=== PATIENT | male | born 2000 | race Caucasian/White ===

== ENCOUNTER 2021-11-22 11:42 | Emergency (ER) | payer BC, SELFPAY ==
[2021-11-22 11:47] VITALS: BP 148/94; PULSE 132; RESP 20; TEMP 37.4; O2SAT 98; BMI 27.3
--- NOTE | 2021-11-22 12:21 | CT_ITS ---
STUDY: CT BRAIN WITHOUT CONTRAST REASON FOR EXAM: Male, 21 years old. seizure RADIATION DOSAGE (If Supplied By Facility): CTDIvol = ( 44.99 ) mGy, DLP = ( 745.49 ) mGycm TECHNIQUE: Transaxial CT imaging of the brain was performed without administration of intravenous contrast material. Individualized dose optimization techniques were used for this CT. COMPARISON: 11/05/2012 FINDINGS: Normal soft tissue structures. Normal calvarium. Normal size ventricles and extra-axial spaces for the patient''s age. Normal white matter tracts of the cerebral hemispheres. Normal basal ganglia and thalami. Normal brainstem. Normal cerebellum. There is no intracranial hemorrhage. There are no findings of an acute ischemic infarction. Normal visualized paranasal sinuses. CT/Brain/Head without Contrast IMPRESSION: Normal unenhanced CT scan of the brain. Electronically Signed: Silver Colindres MD at 13:45 EST Tel , Service support ,
--- NOTE | 2021-11-22 12:22 | EX.ED.DYSGE1 ---
HPI History of Present Illness Chief Complaint: Seizure Informant: patient, spouse/S.O. and EMS Onset/Context/Timing Onset: Today (JPTA) Context: Sudden Onset (while pt was in the shower) Timing: Intermittent (once) and Lasts (unk) Current Severity: Gone Maximum Severity: Severe Narrative Narrative: Unwitnessed episode possible seizure activity, patient was found wrapped up in the shower curtain line skilled nursing in and out of the shower on the bathroom floor by his children. By the time his significant other found him, he was awake and lethargic and gradually woke up, he then was in a rage and was combative with them, confused, running around, and then went outside to the family member who lives next door, it is very cold outside and he was walking around on gravel naked for 30 or 45 minutes. EMS met him in the driveway, now the patient feels back to normal, he does not remember any of that including getting a shower. 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 He denies any drug use. He had just gotten off of work and has had no recent illness or injury. He states he has had one seizure ever, and it was several years ago and he does not know any details about it. He has never been put on antiseizure medications or had an EEG. [facility] Medical History Marijuana abuse Seizures Home Medications levetiracetam [Keppra] 500 mg PO BID #60 tab 11/22/21 [Rx Last Taken Unknown] Allergy/AdvReac Type Severity Reaction Status Date / Time No Known Allergies Allergy Verified 11/22/21 11:45 Social History Smoking Status: Never smoker ROS ROS ED Constitutional Constitutional ED: Denies chills or fever(s) Eyes Eyes: Denies change in vision or diplopia ENT ENT ED: Denies rhinorrhea or sore throat Cardiovascular Cardiovascular: Denies chest pain or palpitations Respiratory/Chest Respiratory/Chest: Denies cough or dyspnea Gastrointestinal Gastrointestinal: Denies abdominal pain, diarrhea, nausea or vomiting Genitourinary Genitourinary ED: Denies dysuria or hematuria Musculoskeletal Musculoskeletal: Reports extremity pain; Denies back pain or neck pain Integumentary Reports as per HPI and wounds; Denies abscess or rash Neurologic Neurologic: Denies headache(s), paresthesias or weakness Psychiatric Psychiatric: Denies anxiety or suicidal thoughts EXAM Physical Exam Const Vital Signs: 11/22/21 11:47 11/22/21 13:50 11/22/21 15:03 Temperature 99.3 F H Temperature Source Temporal Pulse Rate 132 H 118 H 103 H Respiratory Rate 20 H 18 16 Blood Pressure 148/94 H 113/62 Blood Pressure Mean 112 79 Pulse Ox 98 98 100 Oxygen Delivery Method Room Air Room Air Room Air Positive well nourished and well developed General Appearance ED: well developed and NAD HEENT Reports moist mucous membranes HEENT Narrative: No dental injury. Small contusion left anterolateral tongue w/o laceration. normocephalic and atraumatic Eyes PERRL and EOMs intact bilaterally Neck full ROM and supple Resp normal respiratory effort and clear to auscultation bilaterally Cardio regular rate, regular rhythm and no murmurs GI non-tender and non-distended Auscultation: normoactive bowel sounds Palpation: soft Back/Spine no CVA tenderness Back/Spine Narrative: Large tender broad-based contusion/purpura left scapula, skin intact. No vertebral tenderness. Full range of motion without difficulty or pain. General Back: other FROM Extremity normal to inspection Extremity Narrative: Contusion posterior left shoulder/scapula, full range of motion of the shoulder no clavicle tenderness. Great toes have abrasions but are nontender. They are cold but there is brisk cap refill and no cyanosis. General Extremety ED: Negative for edema, pulses abnormal or tenderness General Extremity: Negative for edema or pulses abnormal Neuro oriented x3, CN's II-XII intact bilaterally and no sensory deficits noted Sensorium / Orientation: awake and alert Motor Exam: strength 5/5 throughout Skin no rashes or lesions noted Skin Narrative: Patient has some superficial traumatic wounds of his feet and toes. There is a superficial ruptured blister on the plantar aspect of the right forefoot. There are several abrasions on the dorsum of both great toes that were bandaged by EMS. There may be a small subungual hematoma right great toenail but he does not have any tenderness. No nail injuries. No contaminants. No lacerations. MDM MDM MDM Narrative Medical decision making narrative: Patient had no further seizure activity in emergency department, states on reevaluation that he feels malaised and his feet are sore. He probably truly did have frostnip on his toes, but I do not think that is what the abrasions/blisters are from, they literally look mechanical. His toes are warm, he was given some Toradol for the discomfort I do not think he needs any x-rays there is no bony tenderness and he has good blood flow without cyanosis. His work-up is consistent with a seizure. He has a mild leukocytosis signifying demargination, a lactic acidosis, a contusion on his tongue, and the history is consistent with this even though it was not witnessed. Vital signs normalized with observation here and fluids. He was given a dose of Keppra, loading at 1000 mg. Given that he has been monitored for several hours without further seizure activity I feel he is stable to be discharged home. We cleansed and bandaged his toes/feet, and he will be placed on Keppra and referred to neurology. Lab Data Attestation: I reviewed the patient's lab results. Labs: Laboratory Results - last 24 hr 11/22/21 11/22/21 11/22/21 12:48 12:48 12:48 WBC 12.3 H RBC 5.52 Hgb 16.2 Hct 49.2 MCV 89.1 MCH 29.3 MCHC 32.9 RDW Std Deviation 41.5 RDW Coeff of Maura 12.6 Plt Count 252 MPV 9.4 Immature Gran % (Auto) 0.700 Neut % (Auto) 81.4 H Lymph % (Auto) 11.1 L [place] % (Auto) 6.1 Eos % (Auto) 0.4 Baso % (Auto) 0.3 Absolute Neuts (auto) 10.0 H Absolute Lymphs (auto) 1.37 Nucleated RBC % 0 Sodium 139 Potassium 3.1 L Chloride 101 Carbon Dioxide 27.0 Anion Gap 11 BUN 15 Creatinine 1.15 Estim Creat Clear Calc 120.42 Est GFR (MDRD) Af Amer 102 Est GFR (MDRD) Non-Af 84 BUN/Creatinine Ratio 13.0 Glucose 108 H Lactic Acid 3.6 H* Calcium 9.7 Urine Color Urine Clarity Urine pH Ur Specific [place] Urine Protein Urine Glucose (UA) Urine Ketones Urine Occult Blood Urine Nitrite Urine Bilirubin Urine Urobilinogen Ur Leukocyte Esterase Urine RBC Urine WBC Ur Squamous Epith Cells Urine Bacteria Urine Mucus Urine Opiates Screen Urine Methadone Screen Ur Barbiturates Screen Ur Phencyclidine Scrn Ur Amphetamines Screen U Methamphetamin-MDMA U Benzodiazepines Scrn Urine Cocaine Screen U Cannabinoids Screen Ur Drug Screen Comment 11/22/21 11/22/21 14:28 14:28 WBC RBC Hgb Hct MCV MCH MCHC RDW Std Deviation RDW Coeff of Maura Plt Count MPV Immature Gran % (Auto) Neut % (Auto) Lymph % (Auto) [place] % (Auto) Eos % (Auto) Baso % (Auto) Absolute Neuts (auto) Absolute Lymphs (auto) Nucleated RBC % Sodium Potassium Chloride Carbon Dioxide Anion Gap BUN Creatinine Estim Creat Clear Calc Est GFR (MDRD) Af Amer Est GFR (MDRD) Non-Af BUN/Creatinine Ratio Glucose Lactic Acid Calcium Urine Color Yellow Urine Clarity Clear Urine pH 6.0 Ur Specific [place] 1.025 Urine Protein 100 H Urine Glucose (UA) Normal Urine Ketones 5 H Urine Occult Blood 25 H Urine Nitrite Negative Urine Bilirubin Negative Urine Urobilinogen Normal Ur Leukocyte Esterase Negative Urine RBC 0 SEEN Urine WBC 0 SEEN Ur Squamous Epith Cells 0 SEEN Urine Bacteria 0 SEEN Urine Mucus 0 SEEN Urine Opiates Screen NEGATIVE Urine Methadone Screen NEGATIVE Ur Barbiturates Screen NEGATIVE Ur Phencyclidine Scrn NEGATIVE Ur Amphetamines Screen NEGATIVE U Methamphetamin-MDMA NEGATIVE U Benzodiazepines Scrn NEGATIVE Urine Cocaine Screen NEGATIVE U Cannabinoids Screen POSITIVE H Ur Drug Screen Comment Radiography Diagnostic Testing: Clinical Impression(s) from Imaging Studies Brain CT 11/22/21 12:21 IMPRESSION: Normal unenhanced CT scan of the brain. Electronically Signed: Silver Colindres MD at 13:45 EST Tel , Service support , Shoulder X-Ray 11/22/21 13:05 IMPRESSION: Normal x-ray examination of the shoulder. Electronically Signed: Silver Colindres MD at 13:41 EST Tel , Service support , Discharge Plan Triage Chief Complaint: Seizure ED Provider: Marcus Saenz Dx/Rx/DC Orders Clinical Impression: Seizure, Frostnip, Abrasion foot/toe Instructions: ED Seizure, Recurrent (Adult) Prescriptions: New levetiracetam [Keppra] 500 mg tablet 500 mg PO BID Qty: 60 RF: 0 Primary Care Provider: Care Physician,No Primary Referrals: Grant Bajwa MD [STAFF PHYSICIAN] - As soon as possible (call for appt) Care Physician,No Primary [Primary Care Provider] - Activity Restrictions/Additional Instructions: NO DRIVING until cleared by neurology Disposition Disposition: Home, Self Care
[2021-11-22 13:05] LABS: Absolute Lymphocyte Count 1.37 X10^3/uL (0.83-4.51); Basophil# 0.04 X10^3/uL; Basophil% 0.3 % (0-1); Eosinophil# 0.05 X10^3/uL; Eosinophils% 0.4 % (0-5); Hematocrit 49.2 % (40-54); Hemoglobin 16.2 g/dL (13.0-16.5); Lymphocyte # 1.37 X10^3/ul (0.83-4.51); Lymphocyte % 11.1 % (19-41); Mean Corp Hgb Conc 32.9 g/dL (32-36); Mean Corpuscular Hgb 29.3 pg (27.0-32.0); Mean Corpuscular Volume 89.1 fL (80-94); Mean Platelet Vol. 9.4 fl (6.2-12.0); Monocyte# 0.75 X10^3/uL; Monocyte% 6.1 % (0-10); NRBC Flagged by Analyzer 0 % (0-5); Neutrophil # 10.04 X10^3/uL (2.7-7.7); Neutrophil % 81.4 % (47-70); Platelet Count 252 K/mm3 (150-450); RBC Distribution Width CV 12.6 % (11.6-14.6); RBC Distribution Width SD 41.5 fl (35.1-43.9); Red Blood Count 5.52 M/mm3 (4.6-6.2); White Blood Count 12.3 K/mm3 (4.4-11.0)
--- NOTE | 2021-11-22 13:05 | RAD_ITS ---
STUDY: X-RAY - LEFT SHOULDER REASON FOR EXAM: Male, 21 years old. injury TECHNIQUE: 2 view(s) of the shoulder. COMPARISON: None. FINDINGS: Normal glenohumeral articulation. Normal acromioclavicular joint. Normal acromion. Normal humeral head and visualized proximal humerus. The soft tissue structures are unremarkable. Normal visualized pulmonary apex. RAD/Shoulder min 2 Views IMPRESSION: Normal x-ray examination of the shoulder. Electronically Signed: Silver Colindres MD at 13:41 EST Tel , Service support ,
[2021-11-22 13:18] LABS: Anion Gap 11 (5-15); BUN 15 mg/dL (7-18); Calcium,Total 9.7 mg/dL (8.5-10.1); Chloride 101 mmol/L (98-107); Creatinine, Serum 1.15 mg/dL (0.70-1.30); EST Glomerular Filtration Rate 84 mL/min (>60); Est Glom Filt Rate - Afr Amer 102 mL/min (>60); Estimated Creatinine Clearance 120.42 ml/min; Glucose 108 mg/dL (74-106); Potassium 3.1 mmol/L (3.5-5.1); Sodium Level 139 mmol/L (136-145)
[2021-11-22 13:37] LABS: Lactic Acid 3.6 mmol/L (0.4-1.9)
[2021-11-22 13:50] VITALS: PULSE 118; RESP 18; O2SAT 98
[2021-11-22] MEDS: levETIRAcetam IV 1,000 MG/100 ML BAG 400 MG IV (14:25)
[2021-11-22 14:34] LABS: Bacteria 0 SEEN /hpf (None Seen); Mucous, Urine 0 SEEN /hpf (<or=2+); Red Blood Cells-Urine 0 SEEN /hpf (0-5); Squamous Epithelial Cells - UA 0 SEEN /hpf (0-5)
[2021-11-22 14:44] LABS: Color, Urine Yellow (Yellow); Glucose, Dipstick Normal (Normal); Ketone-Dipstick 5 mg/dl (Negative); Protein-Dipstick 100 mg/dl (Negative); Specific Gravity, Urine 1.025 (1.002-1.030); Urine Bilirubin Dipstick Negative (Negative); Urine Clarity Clear (Clear); Urine Urobilinogen Normal (Normal)
[2021-11-22 14:45] LABS: Leukocyte Esterase-Dipstick Negative /ul (Negative); Nitrite-Dipstick Negative (Negative); Occult Blood-Urine 25 /ul (Negative)
[2021-11-22 15:02] LABS: Amphetamine Urine VISTA NEGATIVE (<1000 ng/mL); Barbiturate Urine VISTA NEGATIVE (< 200 ng/mL); Benzodiazepine Urine VISTA NEGATIVE (< 200 ng/mL); Cocaine Urine VISTA NEGATIVE (< 300 ng/mL); Ecstacy Urine VISTA NEGATIVE (< 500 ng/mL); Methadone Urine VISTA NEGATIVE (< 300 ng/mL); PCP Urine VISTA NEGATIVE (< 25 ng/mL); THC Urine VISTA POSITIVE (< 50 ng/mL); Vista UDS pH Range 5
[2021-11-22 15:03] VITALS: BP 113/62; PULSE 103; RESP 16; O2SAT 100
[2021-11-22 15:09] LABS: White Blood Cells 0 SEEN /hpf (0-5)
[2021-11-22] MEDS: Ketorolac 30 MG/ML Syringe IV (16:01)
[2021-11-22 16:03] VITALS: BP 114/89; PULSE 96; RESP 16; O2SAT 97
[2021-11-22 17:00] LABS: Reflex Lactate? Y
== END 2021-11-22 16:19 | disposition home or self-care (01) ==
PROVIDERS: Emergency Provider Emergency Medicine; Visit Provider Emergency Medicine
DX: R56.9 Unspecified convulsions (principal); S90.811A Abrasion, right foot, initial encounter; S90.812A Abrasion, left foot, initial encounter; X58.XXXA Exposure to other specified factors, initial encounter
CPT/HCPCS: 36415; 70450; 73030; 80048; 80307; 81001; 83605; 85025; 96365; 96366; 96375; 99285; J7030; A4216

== ENCOUNTER 2022-01-27 17:45 | Outpatient (CLI) | payer BC, SELFPAY ==
--- NOTE | 2022-01-27 17:46 | MRI_ITS ---
EXAM: MR HEAD WITHOUT AND WITH INTRAVENOUS CONTRAST CLINICAL INDICATION: epilepsy- Pt has had 2 seizures in lifetime first at 7 yrs of age and 2 months ago) TECHNIQUE: Multiplanar and multisequence MR images of the brain were obtained without and with intravenous contrast. This report was created using [employer] report generation technology. CONTRAST: 19ml Dotarem via IV COMPARISON: None. FINDINGS: BRAIN AND EXTRA-AXIAL SPACES: Minimal asymmetry of the temporal horns, right slightly more prominent than the left. No focal signal abnormalities of the limbic lobes. No intra- or extra-axial hemorrhage. No evidence of acute infarct. No intracranial mass or mass effect. There is preservation of the serrano/white matter interface. Posterior fossa structures are unremarkable. Basal cisterns are patent. SELLA: Unremarkable. Normal sella turcica, pituitary gland, infundibular stalk, optic chiasm and hypothalamus. AUDITORY SYSTEM: Unremarkable. The internal auditory canals are patent. BONES/JOINTS: Unremarkable. No discrete lytic or blastic abnormalities. SINUSES: Unremarkable as visualized. Clear. MASTOID AIR CELLS: Unremarkable as visualized. Clear. ORBITS: Unremarkable as visualized. Both globes, extraocular muscles, optic nerves and retrobulbar fat appear unremarkable. VASCULATURE: Unremarkable as visualized. Normal flow voids in the major intracranial circulation. MRI/Brain W/WO Contrast IMPRESSION: Normal MRI brain with and without contrast. Electronically Signed: Magan Dale MD at 11:27 EST ,
== END 2022-01-27 23:59 | disposition home or self-care (01) ==
LOC: MRI 17:46
PROVIDERS: Referring Provider Psychiatry & Neurology Neurology; Visit Provider Psychiatry & Neurology Neurology
DX: G40.909 Epilepsy, unspecified, not intractable, without status epilepticus (principal)
CPT/HCPCS: 70553; A9575

== ENCOUNTER → 2022-03-28 | Outpatient (CLI) | payer BC, SELFPAY ==
--- NOTE | 2022-03-28 09:21 | TELEMED_ITS ---
[facility] has confirmed receipt of a request for visit. This document confirms receipt of the order initiating the consult. To find the results of the consultation, please view the patient's reports for the scanned Telemed Consult.
== END | disposition home or self-care (01) ==
PROVIDERS: Referring Provider Psychiatry & Neurology Neurology; Visit Provider Psychiatry & Neurology Neurology
DX: G40.909 Epilepsy, unspecified, not intractable, without status epilepticus (principal)
CPT/HCPCS: 95819

== ENCOUNTER → 2022-05-26 | Outpatient (CLI) | payer BC, SELFPAY ==
[2022-05-26 12:52] LABS: Mean Corp Hgb Conc 34.1 g/dL (32-36); Mean Corpuscular Hgb 29.9 pg (27.0-32.0); Mean Corpuscular Volume 87.6 fL (80-94); Mean Platelet Vol. 9.1 fl (6.2-12.0); Platelet Count 208 K/mm3 (150-450); RBC Distribution Width CV 12.4 % (11.6-14.6); RBC Distribution Width SD 39.8 fl (35.1-43.9); Red Blood Count 5.02 M/mm3 (4.6-6.2); White Blood Count 6.7 K/mm3 (4.4-11.0)
[2022-05-26 13:40] LABS: ALB/GLOB Ratio 1.1 RATIO (0.9-2.4); AST(SGOT) 14 U/L (15-37); Alanine Aminotransfer ALT/SGPT 31 U/L (16-61); Albumin, Serum 3.8 g/dL (3.2-5.0); Alkaline Phosphatase 81 U/L (45-117); Anion Gap 5 (5-15); BUN 16 mg/dL (7-18); BUN/Creat Ratio 14.7 RATIO (10-20); Chloride 107 mmol/L (98-107); Creatinine, Serum 1.09 mg/dL (0.70-1.30); EST Glomerular Filtration Rate 89 mL/min (>60); Est Glom Filt Rate - Afr Amer 108 mL/min (>60); Globulin 3.5 g/dL (2.2-4.2); Glucose 111 mg/dL (74-106); Potassium 3.9 mmol/L (3.5-5.1); Protein, Total 7.3 g/dL (6.4-8.2); Sodium Level 141 mmol/L (136-145); Thyroid Stim Hormone (TSH) 1.11 uIU/mL (0.358-3.74)
== END | disposition home or self-care (01) ==
PROVIDERS: PCP Nurse Practitioner; Referring Provider Psychiatry & Neurology Neurology; Visit Provider Psychiatry & Neurology Neurology
DX: G40.909 Epilepsy, unspecified, not intractable, without status epilepticus (principal)
CPT/HCPCS: 36415; 80053; 82140; 82542; 84443; 85027

== ENCOUNTER 2023-01-24 05:11 | Emergency (ER) | payer OTHER, BC, SELFPAY ==
[2023-01-24 05:12] VITALS: BP 156/115; PULSE 115; RESP 19; TEMP 36.1; O2SAT 97; BMI 29.2
--- NOTE | 2023-01-24 06:21 | RAD_ITS ---
EXAM: XR LEFT HAND COMPLETE, 3 OR MORE VIEWS CLINICAL INDICATION: injury TECHNIQUE: Frontal, lateral and oblique views of the left hand. This report was created using [employer] report generation technology. COMPARISON: None. FINDINGS: BONES/JOINTS: There is fracture of the tip of the terminal tuft of the fourth digit, with at least 3 small adjacent fracture fragments best seen on the oblique view. Preservation of the joint space. No sclerotic or destructive changes observed. SOFT TISSUES: Irregular soft tissue around the tip of the fourth digit with soft tissue swelling. No radiopaque foreign body. RAD/Hand Min 3 Views IMPRESSION: Soft tissue swelling at the tip of the fourth digit. Multiple underlying fracture fragments involving the tip of the distal phalanx terminal tuft. Electronically Signed: Michelle Whalen MD at 7:56 EST ,
[2023-01-24] MEDS: Diphth,Pertuss(Acell),Tet Vac 0.5 ML Vial IM (06:47)
[2023-01-24] MEDS: Bupivacaine Mpf 0.5% 30 ML VIAL INFILT (07:48)
--- NOTE | 2023-01-24 08:09 | EDS_ITS ---
HPI History of Present Illness Chief Complaint: Laceration Narrative Narrative: Patient is a 22-year-old male who is right-hand dominant and presents from work after a crush injury to his left fourth finger. He states that a machine he was working on caught his left ring finger roughly 1 hour prior to arrival and injured it in a crush/mashing fashion. He reports that he has pain secondary to the injury but otherwise denies any numbness tingling or weakness. He states that with the laceration that occurred from the trauma he is unsure of his tetanus status. With concern he may have a fracture or need sutures he was sent to the hospital for evaluation. [facility] Medical History Marijuana abuse Seasonal allergies Seizures Home Medications amoxicillin 875 mg-potassium clavulanate 125 mg tablet 1 tab PO BID 7 days #14 tabs 01/24/23 [Rx Last Taken Unknown] lamotrigine 25 mg tablet 25 mg PO BID 01/24/23 [History Last Taken Unknown] Allergy/AdvReac Type Severity Reaction Status Date / Time No Known Allergies Allergy Verified 01/24/23 05:16 Family History Other Alcoholism Anxiety Cancer Heart disease Mental disorder Seizures Suicide attempt Surgical History History of eye surgery History of facial surgery Social History (Updated 10/30/22 @ 15:39 by Taye Graham) Smoking Status: Former smoker alcohol intake: never substance use type: does not use do you feel safe at home: Yes ROS ROS ED Constitutional Constitutional ED: Denies chills or fever(s) ENT ENT ED: Denies sore throat Cardiovascular Cardiovascular: Denies chest pain Respiratory/Chest Respiratory/Chest: Denies cough or dyspnea Gastrointestinal Gastrointestinal: Denies abdominal pain, diarrhea, nausea or vomiting Genitourinary Genitourinary ED: Denies dysuria Musculoskeletal Musculoskeletal: Reports other Details: Positive left finger pain Integumentary Reports other Details: Positive left finger laceration ; Denies rash Neurologic Neurologic: Denies headache(s), paresthesias or weakness Hematologic/Lymphatic Hematologic/Lymphatic: Denies easy bleeding or easy bruising EXAM Physical Exam Const Vital Signs: 01/24/23 05:12 Temperature 96.9 F L Temperature Source Temporal Pulse Rate 115 H Respiratory Rate 19 H Blood Pressure 156/115 H Blood Pressure Mean 128 Pulse Ox 97 Oxygen Delivery Method Room Air Positive well nourished and well developed General Appearance ED: well developed Eyes PERRL and EOMs intact bilaterally Neck supple Resp normal respiratory effort and clear to auscultation bilaterally Cardio regular rate and regular rhythm Extremity Extremity Narrative: Left upper extremity is neurovascular intact. To the distal phalanx of the left fourth digit patient has a jagged macerated 1.5 cm laceration along the lateral portion of the distal finger/nail bed. Wound is subcutaneous layer deep with minimal ooze of blood. There is a small less than 10% subungual hematoma noted as well. No obvious bony deformity or joint effusion. No trauma to the extensor or flexor tendon. No ligamentous laxity present. Remainder of the exam is normal Neuro oriented x3 and CN's II-XII intact bilaterally Sensorium / Orientation: alert Psych mental status grossly normal Skin no rashes or lesions noted Skin Narrative: Laceration to the left fourth finger as documented above MDM MDM MDM Narrative Medical decision making narrative: Patient presented to the ER with mechanical trauma to his left fourth finger. As this was secondary to a crushing injury there is concern that he has developed an open fracture or possibly could have had an extensor flex and t endon injury. By exam he can extend and flex at the DIP joint so there is no signs of injury to the extensor or flexor tendon. X-ray was obtained and does show a fracture to the tuft consistent with the crush injury. With the laceration present this is considered an open fracture. Therefore patient had his tetanus updated and he was started on Augmentin. The wound was closed as documented below but at this time as he is neurovascularly intact with no ligamentous or tendon injury there is no need for emergent orthopedic consultation and patient is otherwise safe for discharge Patient had the left fourth finger anesthetized in digital block fashion using a total of 8 mL of 1% lidocaine without epinephrine. The wound was cleaned with chlorhexidine and copious irrigated with normal saline. Then four 4-0 Ethilon sutures were placed in simple interrupted fashion to bring the wound together good approximation. Another two 4-0 Vicryl sutures were then placed along the tip of the finger into the nailbed region in simple interrupted fashion for further hemostatic control. Therefore total of 6 sutures were placed into the patient's left fourth finger bring the wound together good approximation and causing hemostasis. Patient tolerated the procedure well without complication History & Record Review Discussion w/independent historian: Patient and Friend Radiography Diagnostic Testing: Clinical Impression(s) from Imaging Studies Hand X-Ray 01/24/23 06:21 IMPRESSION: Soft tissue swelling at the tip of the fourth digit. Multiple underlying fracture fragments involving the tip of the distal phalanx terminal tuft. Electronically Signed: Michelle Whalen MD at 7:56 EST , Left hand x-rays interpreted by the emergency medicine physician reveals a tuft fracture at the left fourth digit without foreign body or dislocation Discharge Plan Triage Chief Complaint: Laceration ED Provider: Chato Belle Dx/Rx/DC Orders Clinical Impression: Open fracture of phalanx of left ring finger, Laceration of left ring finger, Epilepsy Instructions: ED Fracture, Finger, Open, ED Laceration, Hand: All Closures Prescriptions: New amoxicillin-pot clavulanate 875-125 mg tablet 1 tab PO BID 7 Days Qty: 14 0RF No Action lamotrigine 25 mg tablet 25 mg PO BID Primary Care Provider: Care Physician,No Primary Referrals: Care Physician,No Primary [Primary Care Provider] - Activity Restrictions/Additional Instructions: Please follow-up with Workmen's Compensation or return to the ER in 7 to 10 days for suture removal. Take your antibiotic as directed to help prevent infection but if you notice any increased redness swelling or streaking or have any further concerns please return to the ER for repeat evaluation. Disposition Disposition: Home, Self Care Discharge Date/Time: 01/24/23 08:27
[2023-01-24] MEDS: Amox/Clavulanate 875 MG Tablet PO (08:18)
== END 2023-01-24 08:27 | disposition home or self-care (01) ==
PROVIDERS: Emergency Provider Emergency Medicine; Visit Provider Emergency Medicine
DX: S62.635B Displaced fracture of distal phalanx of left ring finger, initial encounter for open fracture (principal); G40.909 Epilepsy, unspecified, not intractable, without status epilepticus; Z87.891 Personal history of nicotine dependence; W23.0XXA Caught, crushed, jammed, or pinched between moving objects, initial encounter; Y99.0 Civilian activity done for income or pay; Z23 Encounter for immunization
CPT/HCPCS: 12001; 73130; 90471; 90715; 99283

== ENCOUNTER → 2023-05-18 | Outpatient (CLI) | payer BC, SELFPAY ==
[2023-05-18 11:15] LABS: Hemoglobin 15.6 g/dL (13.0-16.5); Mean Corp Hgb Conc 32.5 g/dL (32-36); Mean Corpuscular Hgb 29.3 pg (27.0-32.0); Mean Corpuscular Volume 90.2 fL (80-94); Mean Platelet Vol. 9.1 fl (6.2-12.0); Platelet Count 255 K/mm3 (150-450); RBC Distribution Width CV 12.5 % (11.6-14.6); RBC Distribution Width SD 41.1 fl (35.1-43.9); Red Blood Count 5.32 M/mm3 (4.6-6.2)
[2023-05-18 11:19] LABS: AST(SGOT) 18 U/L (15-37); Alanine Aminotransfer ALT/SGPT 31 U/L (16-61); Albumin, Serum 3.9 g/dL (3.2-5.0); Alkaline Phosphatase 88 U/L (45-117); Anion Gap 4 (5-15); BUN 14 mg/dL (7-18); BUN/Creat Ratio 14.4 RATIO (10-20); Calcium,Total 9.2 mg/dL (8.5-10.1); Chloride 105 mmol/L (98-107); Creatinine, Serum 0.97 mg/dL (0.70-1.30); EST Glomerular Filtration Rate 101 mL/min (>60); Est Glom Filt Rate - Afr Amer 123 mL/min (>60); Globulin 3.9 g/dL (2.2-4.2); Glucose 103 mg/dL (74-106); Protein, Total 7.8 g/dL (6.4-8.2); Sodium Level 139 mmol/L (136-145)
[2023-05-18 11:56] LABS: Hemoglobin A1c 5.6 % (3.8-5.6)
[2023-05-21 20:07] LABS: Lamotrigine (Lamictal) Level 1.7 ug/mL (2.0-20.0)
== END | disposition home or self-care (01) ==
LOC: LAB 10:19
PROVIDERS: Referring Provider Psychiatry & Neurology Neurology; Visit Provider Psychiatry & Neurology Neurology
DX: G40.909 Epilepsy, unspecified, not intractable, without status epilepticus (principal); R73.9 Hyperglycemia, unspecified
CPT/HCPCS: 36415; 80053; 82140; 82542; 83036; 85027

== ENCOUNTER 2024-08-06 15:19 | Emergency (ER) | payer BC, SELFPAY ==
[2024-08-06 15:20] VITALS: BP 160/107; PULSE 91; RESP 16; TEMP 36.9; O2SAT 99
[2024-08-06 17:19] VITALS: BP 138/78; PULSE 101; RESP 16; O2SAT 98
--- NOTE | 2024-08-06 17:40 | CT_ITS ---
STUDY: CT ABDOMEN AND PELVIS WITHOUT CONTRAST REASON FOR EXAM: Male, 23 years old. Kidney Stone RADIATION DOSAGE (If Supplied By Facility): CTDIvol = ( 17.07 ) mGy, DLP = ( 932.88 ) mGycm TECHNIQUE: Transaxial images were obtained from the dome of the diaphragm to the symphysis pubis without oral contrast, and without intravenous contrast. Sagittal and coronal images were reconstructed. Individualized dose optimization techniques were used for this CT. COMPARISON: None. FINDINGS: The visualized lung bases are unremarkable. The visualized portions of the heart are within normal limits. Normal liver. Normal gallbladder and extrahepatic biliary system. Normal spleen. Normal pancreas. Normal bilateral adrenal glands. Tiny nonobstructing right renal calculus. There is also mild right renal pelvocaliectasis secondary to tiny calculus in the distal right ureter measuring approximately 2 to 3 mm in size. Normal left kidney. Normal visualized stomach. Normal small intestine. Normal colon. The appendix is visualized and appears normal. Normal abdominal aorta. Normal inferior vena cava. Normal retroperitoneum. Poorly distended bladder which cannot be adequately evaluated Normal abdominal wall. Normal osseous structures. CT/Abdomen/Pelvis without Cont IMPRESSION: Right nephrolithiasis and very mild renal pelvocaliectasis secondary to tiny calculus in the distal ureter measuring approximately 2 to 3 mm in size Electronically Signed: Tuan Thrasher MD at 18:15 EDT ,
[2024-08-06 17:49] LABS: Absolute Lymphocyte Count 2.31 X10^3/uL (0.83-4.51); Absolute Neutrophil Count 16.1 X10^3/uL (2.0-7.7); Basophil# 0.08 X10^3/uL; Basophil% 0.4 % (0-1); Eosinophil# 0.04 X10^3/uL; Eosinophils% 0.2 % (0-5); Hematocrit 45.2 % (40-54); Hemoglobin 14.9 g/dL (13.0-16.5); Lymphocyte # 2.31 X10^3/ul (0.83-4.51); Lymphocyte % 11.7 % (19-41); Mean Corpuscular Hgb 29.1 pg (27.0-32.0); Mean Corpuscular Volume 88.3 fL (80-94); Mean Platelet Vol. 9.1 fl (6.2-12.0); Monocyte# 1.04 X10^3/uL; Monocyte% 5.2 % (0-10); NRBC Flagged by Analyzer 0 % (0-5); Neutrophil # 16.14 X10^3/uL (2.7-7.7); Neutrophil % 81.4 % (47-70); Platelet Count 274 K/mm3 (150-450); RBC Distribution Width CV 12.5 % (11.6-14.6); RBC Distribution Width SD 40.7 fl (35.1-43.9); Red Blood Count 5.12 M/mm3 (4.6-6.2); White Blood Count 19.8 K/mm3 (4.4-11.0)
[2024-08-06 18:01] LABS: Anion Gap 11 (5-15); BUN 20 mg/dL (7-18); BUN/Creat Ratio 14.9 RATIO (10-20); Calcium,Total 9.9 mg/dL (8.5-10.1); Chloride 101 mmol/L (98-107); Creatinine, Serum 1.34 mg/dL (0.70-1.30); EST Glomerular Filtration Rate 69 mL/min (>60); Est Glom Filt Rate - Afr Amer 84 mL/min (>60); Glucose 150 mg/dL (74-106); Potassium 3.4 mmol/L (3.5-5.1); Sodium Level 138 mmol/L (136-145)
[2024-08-06 19:15] VITALS: BMI 29.2
[2024-08-06] MEDS: Ondansetron 4 MG/2 ML Vial IV (19:32)
[2024-08-06] MEDS: Ketorolac 15 MG/ML Vial IV (19:32)
[2024-08-06 19:35] LABS: Color, Urine Yellow (Yellow); Glucose, Dipstick Normal (Normal); Ketone-Dipstick 5 mg/dl (Negative); Leukocyte Esterase-Dipstick 25 /ul (Negative); Nitrite-Dipstick Negative (Negative); Occult Blood-Urine 250 /ul (Negative); Protein-Dipstick 30 mg/dl (Negative); Specific Gravity, Urine 1.025 (1.002-1.030); Urine Bilirubin Dipstick Negative (Negative); Urine Clarity Sl. Cloudy (Clear); Urine Urobilinogen Normal (Normal)
[2024-08-06] MEDS: 0.9% Normal Saline (1000mL) 1,000 ML 250 ML IV (19:40)
[2024-08-06] MEDS: fentaNYL 100 MCG/2 ML Ampul 50 MCG IV (19:43)
[2024-08-06 19:47] LABS: Bacteria 1+ /hpf (None Seen); Mucous, Urine 2+ /hpf (<or=2+); Red Blood Cells-Urine 50-100 SEEN /hpf (0-5); Squamous Epithelial Cells - UA 0-5 SEEN /hpf (0-5)
[2024-08-06 19:48] LABS: White Blood Cells 0-5 SEEN /hpf (0-5)
--- NOTE | 2024-08-06 20:47 | EDS_ITS ---
HPI History of Present Illness Chief Complaint: Flank Pain Informant: patient Narrative Narrative: Patient is a 23-year-old male present with sudden onset of pretty severe right- sided flank pain. Started on 3:00 this afternoon. Has some associated nausea. States the pain is rating down to his lower abdomen. He denies any testicular groin pain but feels that he needs to pee really bad. Denies any fever or chills. Does have associated nausea but no vomiting. Denies any recent changes bowel movements. Notes that a couple days ago at work he did have a little bit of pain in his right back but did not think too much of it. Denies taking for symptoms prior to arrival. No other complaints or concerns at this time. Denies any history of kidney stones but states that his father has had kidney stones in the past. [facility] Medical History Seasonal allergies Marijuana abuse Seizures Home Medications ?Medication ?Instructions ?Recorded ?Last Taken ?Type amoxicillin 875 mg-potassium 1 tab PO BID 7 days #14 tabs 01/24/23 Unknown Rx clavulanate 125 mg tablet lamotrigine 25 mg tablet 50 mg (2 x 25 mg) PO BID #120 tabs 01/21/24 Unknown Rx ibuprofen 600 mg tablet 600 mg PO Q6H PRN PRN pain #20 08/06/24 Unknown Rx TABLETS ondansetron 4 mg disintegrating 4 mg PO Q8H PRN PRN Nausea #10 tabs 08/06/24 Unknown Rx tablet oxycodone-acetaminophen 5 mg-325 1 tab PO Q6H PRN PRN Pain 3 days 08/06/24 Unknown Rx mg tablet #12 TABLETS tamsulosin 0.4 mg capsule (Flomax) 0.4 mg PO DAILY #7 caps 08/06/24 Unknown Rx Allergy/AdvReac Type Severity Reaction Status Date / Time No Known Allergies Allergy Verified 08/06/24 15:20 Family History Other Alcoholism Anxiety Cancer Heart disease Mental disorder Seizures Suicide attempt Surgical History History of eye surgery History of facial surgery Social History Smoking Status: Former smoker alcohol intake: never substance use type: does not use do you feel safe at home: Yes ROS ROS ED Constitutional Constitutional ED: Denies chills or fever(s) Cardiovascular Cardiovascular: Denies chest pain Respiratory/Chest Respiratory/Chest: Denies cough or dyspnea Gastrointestinal Gastrointestinal: Reports abdominal pain and nausea; Denies diarrhea or vomiting Genitourinary Genitourinary ED: Reports other Details: Urgency ; Denies dysuria, hematuria or urinary frequency Musculoskeletal Musculoskeletal: Reports back pain; Denies myalgias Integumentary Denies rash EXAM Physical Exam Const Vital Signs: 08/06/24 15:20 08/06/24 17:19 Temperature 98.4 F Temperature Source Oral Pulse Rate 91 101 H Respiratory Rate 16 16 Blood Pressure 160/107 H 138/78 H Blood Pressure Mean 124 98 Pulse Ox 99 98 Oxygen Delivery Method Room Air Room Air Positive well nourished and well developed Constitutional Narrative: Patient and mild distress secondary to pain General Appearance ED: well developed HEENT Reports moist mucous membranes Neck supple Chest Wall inspection of chest normal and palpation of chest normal Resp normal respiratory effort and clear to auscultation bilaterally Cardio regular rate and regular rhythm GI normal to inspection, nondistended, normoactive bowel sounds and non-tender Back/Spine no CVA tenderness Extremity normal to inspection General Extremety ED: Negative for edema General Extremity: Negative for edema Neuro Sensorium / Orientation: alert Motor Exam: Negative for general weakness Psych mental status grossly normal Mood & Affect: anxious Skin no rashes or lesions noted MDM MDM MDM Narrative Medical decision making narrative: Patient is evaluated for acute onset of right-sided flank pain. Differential includes renal colic, kidney infection, muscle skeletal pain, shingles, and less likely acute vascular pathology. Patient initially is hypertensive however suspect this secondary to pain. He does have a leukocytosis of 19.8 with normal hemoglobin and normal platelets. BMP shows a mild elevation of his creatinine of 1.34. Glucose is mildly elevated at 150. Urinalysis is consistent with hematuria. CT of the abdomen pelvis shows right nephrolithiasis and very mild renal pelvic phthisis secondary to 2 to 3 mm distal ureter stone. I suspect patient has a kidney stone discitis symptoms and his leukocytosis is reactive. He does not have any fever or other signs consistent with infection. Patient is given IV Toradol, Zofran, fentanyl and fluids in the emergency room. He has significant improvement of his symptoms. At this time will be discharged home with outpatient pain control and outpatient neurology follow-up. Given that the stone is 2 to 3 mm it should pass on its own. He did have a mild elevation of his creatinine to 1.34 but he is given IV fluids. I do not think he needs admission for [facility] at this time. Patient is agreeable with this plan of care. Is given return precautions. Discharged home in improved and stable condition. Lab Data Attestation: I reviewed the patient's lab results. Labs: Laboratory Results - last 24 hr 08/06/24 08/06/24 17:28 19:25 WBC 19.8 H RBC 5.12 Hgb 14.9 Hct 45.2 MCV 88.3 MCH 29.1 MCHC 33.0 RDW Std Deviation 40.7 RDW Coeff of Maura 12.5 Plt Count 274 MPV 9.1 Immature Gran % (Auto) 1.100 H Neut % (Auto) 81.4 H Lymph % (Auto) 11.7 L Gre[place] % (Auto) 5.2 Eos % (Auto) 0.2 Baso % (Auto) 0.4 Absolute Neuts (auto) 16.1 H Absolute Lymphs (auto) 2.31 Nucleated RBC % 0 Sodium 138 Potassium 3.4 L Chloride 101 Carbon Dioxide 26.0 Anion Gap 11 BUN 20 H Creatinine 1.34 H Est GFR (MDRD) Af Amer 84 Est GFR (MDRD) Non-Af 69 BUN/Creatinine Ratio 14.9 Glucose 150 H Calcium 9.9 Urine Color Yellow Urine Clarity Sl. Cloudy Urine pH 5.0 Ur Specific [place] 1.025 Urine Protein 30 H Urine Glucose (UA) Normal Urine Ketones 5 H Urine Occult Blood 250 H Urine Nitrite Negative Urine Bilirubin Negative Urine Urobilinogen Normal Ur Leukocyte Esterase 25 H Urine RBC 50-100 SEEN Urine WBC 0-5 SEEN Ur Squamous Epith Cells 0-5 SEEN Urine Bacteria 1+ Urine Mucus 2+ Radiography Diagnostic Testing: Clinical Impression(s) from Imaging Studies Abdomen/Pelvis CT 08/06/24 17:40 IMPRESSION: Right nephrolithiasis and very mild renal pelvocaliectasis secondary to tiny calculus in the distal ureter measuring approximately 2 to 3 mm in size Electronically Signed: Tuan Thrasher MD at 18:15 EDT , Discharge Plan Triage Chief Complaint: Flank Pain ED Provider: Abi Del Cid Dx/Rx/DC Orders Clinical Impression: Renal colic, Renal colic on right side, Hydroureter on right Instructions: ED Kidney Stone with Pain Prescriptions: New tamsulosin [Flomax] 0.4 mg capsule 0.4 mg PO DAILY Qty: 7 0RF ibuprofen 600 mg tablet 600 mg PO Q6H PRN PRN (Reason: pain) Qty: 20 0RF oxycodone-acetaminophen 5-325 mg tablet 1 tab PO Q6H PRN PRN (Reason: Pain) 3 Days Qty: 12 0RF ondansetron 4 mg tablet,disintegrating 4 mg PO Q8H PRN PRN (Reason: Nausea) Qty: 10 0RF No Action lamotrigine 25 mg tablet 50 mg PO BID Qty: 120 10RF amoxicillin-pot clavulanate 875-125 mg tablet 1 tab PO BID 7 Days Qty: 14 0RF Stand Alone Forms: ED Work / School Excuse Primary Care Provider: Care Physician,No Primary Referrals: Jose Kitchen MD [Med Staff - Active Staff] - 3-5 Days if not improving Care Physician,No Primary [Primary Care Provider] - Activity Restrictions/Additional Instructions: You have a small kidney stone on the right side that is 2 to 3 mm. It should pass on its own within the next day or 2. It is hard to predict how long will take to pass. Please make sure you are pushing fluids over the next few days. If the pain becomes too severe, you develop a fever or if you have further concerns please return to the emergency room. Print Language: Bulgarian Disposition Disposition: Home, Self Care
[2024-08-06 21:44] VITALS: BP 136/67; PULSE 71; RESP 18; TEMP 36.8; O2SAT 100
== END 2024-08-06 21:45 | disposition home or self-care (01) ==
PROVIDERS: Emergency Provider Emergency Medicine; Visit Provider Emergency Medicine
DX: N20.1 Calculus of ureter (principal); N13.4 Hydroureter; Z87.891 Personal history of nicotine dependence
CPT/HCPCS: 74176; 80048; 81001; 85025; 96361; 96374; 96375; 99283; J7030; A4216; J2405

== ENCOUNTER 2025-01-10 14:00 | Outpatient (CLI) | payer BC, SELFPAY ==
[2025-01-10 14:29] LABS: Hematocrit 45.3 % (40-54); Mean Corp Hgb Conc 33.1 g/dL (32-36); Mean Corpuscular Hgb 29.5 pg (27.0-32.0); Mean Platelet Vol. 8.9 fl (6.2-12.0); Platelet Count 252 K/mm3 (150-450); RBC Distribution Width CV 12.9 % (11.6-14.6); RBC Distribution Width SD 42.1 fl (35.1-43.9); Red Blood Count 5.09 M/mm3 (4.6-6.2); White Blood Count 7.3 K/mm3 (4.4-11.0)
[2025-01-10 15:16] LABS: AST(SGOT) 15 U/L (15-37); Alanine Aminotransfer ALT/SGPT 29 U/L (16-61); Albumin, Serum 3.8 g/dL (3.2-5.0); Alkaline Phosphatase 81 U/L (45-117); Anion Gap 6 (5-15); BUN 13 mg/dL (7-18); BUN/Creat Ratio 11.3 RATIO (10-20); Calcium,Total 9.5 mg/dL (8.5-10.1); Chloride 104 mmol/L (98-107); Creatinine, Serum 1.15 mg/dL (0.70-1.30); EST Glomerular Filtration Rate 82 mL/min (>60); Est Glom Filt Rate - Afr Amer 99 mL/min (>60); Glucose 77 mg/dL (74-106); Protein, Total 7.8 g/dL (6.4-8.2); Sodium Level 139 mmol/L (136-145)
[2025-01-14 16:09] LABS: Lamotrigine (Lamictal) Level 5.8 ug/mL (2.0-20.0)
== END 2025-01-10 23:59 | disposition home or self-care (01) ==
PROVIDERS: Referring Provider Psychiatry & Neurology Neurology; Visit Provider Psychiatry & Neurology Neurology
DX: Z00.00 Encounter for general adult medical examination without abnormal findings (principal)
CPT/HCPCS: 36415; 80053; 82140; 82542; 85027